=== PATIENT | female | born 1995 | race Hispanic/Latino ===

== ENCOUNTER 2024-04-06 22:32 | Emergency (ER) | payer SELFPAY ==
[2024-04-06] MEDS ORDERED: HYDROcodone/Acetaminophen 5/325 mg Tablet ONE (22:51)
[2024-04-06] MEDS ORDERED: Boostrix 0.5 ML (Tdap) VIAL (>/=7 yrs of age) ONE (23:01)
== END 2024-04-07 00:17 | disposition home or self-care (01) ==
LOC: BURERS 22:32
DX: T23.251A Burn of second degree of right palm, initial encounter (principal); T23.211A Burn of second degree of right thumb (nail), initial encounter; T23.151A Burn of first degree of right palm, initial encounter; T23.111A Burn of first degree of right thumb (nail), initial encounter; S90.411A Abrasion, right great toe, initial encounter; X16.XXXA Contact with hot heating appliances, radiators and pipes, initial encounter; Y93.G3 Activity, cooking and baking; Z23 Encounter for immunization
CPT/HCPCS: 90471; 90715